=== PATIENT | male | born 1970 | race African-American/Black ===

== ENCOUNTER 2017-12-07 09:03 | Emergency (ER) | payer BC ==
[~2017-12-07] VITALS: Ht 182.8 cm; Wt 108.9 kg
[~2017-12-07 09:03] MED LIST: HYDROCODONE BIT1 T11 PO; NEXIUM40 MG PO; NKHM; VICODIN 5/500 505 MG PO
[2017-12-07] MEDS ORDERED: NEXIUM20 M1 PO (09:09)
[2017-12-07] MEDS ORDERED: ZYRTEC10 MG PO (10:23)
[2017-12-07] MEDS ORDERED: FLONASE ALLERG9.9 ML NS (10:23)
[2017-12-07] MEDS ORDERED: AUGMENTIN 875875 MG PO (10:23)
== END 2017-12-07 11:37 | disposition home or self-care (01) ==
LOC: ED 09:03
DX: J32.9 Chronic sinusitis, unspecified (principal); F10.10 Alcohol abuse, uncomplicated; Z79.899 Other long term (current) drug therapy

== ENCOUNTER → 2019-01-26 | Outpatient (CLI) | payer BC ==
[~2019-01-26] MED LIST changes: +AUGMENTIN 875875 MG PO; +FLONASE ALLERG9.9 ML NS; +NEXIUM20 M1 PO; +ZYRTEC10 MG PO
[2019-01-26 11:51] LABS: BASO # 0.1 10*3/uL (0.0-0.1); BASO % 0.7 % (0.0-1.0); EOS # 0.3 10*3/uL (0.0-0.4); EOS % 3.6 % (1.0-4.0); HEMATOCRIT 47.4 % (42.0-52.0); HEMOGLOBIN 16.1 g/dl (14.0-18.0); LYMPH # 2.7 10*3/uL (1.3-4.4); LYMPH % 39.1 % (27.0-41.0); MEAN CELL VOLUME 88.1 fl (80.0-94.0); MEAN CORPUSCULAR HGB 29.9 pg (27.0-31.0); MEAN PLATELET VOLUME 10.8 fl (9.6-12.3); MONO # 0.7 10*3/uL (0.1-1.0); MONO % 10.3 % (3.0-9.0); NEUT # 3.2 10*3/uL (2.3-7.9); NEUT % 45.9 % (47.0-73.0); PLATELET COUNT AUTOMATED 244 10*3/uL (130-400); RED BLOOD COUNT 5.38 10*6/uL (4.50-5.90); RED CELL DISTRI WIDTH 14.5 % (0-14.5)
[2019-01-26 12:27] LABS: ALBUMIN 3.7 gm/dl (3.1-4.5); ALKALINE PHOSPHATASE 98 U/L (45-117); BUN 16 mg/dl (7-24); CHLORIDE 109 mmol/L (98-107); CHOLESTEROL 166 mg/dL (<200); CREATININE 1.29 mg/dL (0.70-1.30); FREE T4 1.04 ng/dl (0.76-1.46); HDL CHOLESTEROL 35 mg/dl (40-60); LDL CHOLESTEROL 103 mg/dL (9-159); POTASSIUM 3.7 mmol/L (3.5-5.1); SGOT/AST 10 IU/L (3-35); SGPT/ALT 23 U/L (12-78); SODIUM 143 mmol/L (136-145); TOTAL PROTEIN 8.5 gm/dL (6.4-8.2); TRIGLYCERIDES 139 mg/dl (<150); VLDL CHOLESTEROL 28 mg/dL (6-40)
== END | disposition home or self-care (01) ==
LOC: LAB 11:13
PROVIDERS: Family Medicine
DX: I10 Essential (primary) hypertension (principal); E78.6 Lipoprotein deficiency

== ENCOUNTER 2020-06-19 13:22 | Emergency (ER) | payer BC ==
[~2020-06-19] VITALS: Ht 182.8 cm; Wt 117.9 kg
[2020-06-19] MEDS ORDERED: IBU800 MG PO (15:05)
== END 2020-06-19 15:12 | disposition home or self-care (01) ==
LOC: ED 13:22
DX: S20.212A Contusion of left front wall of thorax, initial encounter (principal); Z79.899 Other long term (current) drug therapy; W18.09XA Striking against other object with subsequent fall, initial encounter; Y93.89 Activity, other specified; Y92.89 Other specified places as the place of occurrence of the external cause; Y99.8 Other external cause status

== ENCOUNTER → 2023-03-05 | Outpatient (CLI) | payer BC ==
[~2023-03-05] MED LIST changes: +IBU800 MG PO
== END ==
LOC: RAD/SH 07:46
PROVIDERS: ATTEND Internal Medicine
DX: R13.10 Dysphagia, unspecified (principal)

== ENCOUNTER 2023-08-23 08:42 | Emergency (ER) | payer BC ==
[2023-08-23 10:02] LABS: BASO # 0.1 10*3/uL (0.0-0.1); BASO % 0.5 % (0.0-1.0); EOS # 0.2 10*3/uL (0.0-0.4); EOS % 1.9 % (1.0-4.0); HEMATOCRIT 40.3 % (42.0-52.0); LYMPH # 2.9 10*3/uL (1.3-4.4); LYMPH % 25.8 % (27.0-41.0); MEAN CELL VOLUME 83.8 fl (80.0-94.0); MEAN PLATELET VOLUME 9.8 fl (9.6-12.3); MONO # 0.8 10*3/uL (0.1-1.0); MONO % 7.1 % (3.0-9.0); NEUT # 7.3 10*3/uL (2.3-7.9); NEUT % 63.9 % (47.0-73.0); PLATELET COUNT AUTOMATED 253 10*3/uL (130-400); RED BLOOD COUNT 4.81 10*6/uL (4.50-5.90); RED CELL DISTRI WIDTH 16.9 % (0-14.5); WHITE BLOOD COUNT 11.4 10*3/uL (4.8-10.8)
[2023-08-23 10:34] LABS: ALKALINE PHOSPHATASE 75 U/L (46-116); BUN 15 mg/dl (9-23); CHLORIDE 105 mmol/L (98-107); LIPASE 49 U/L (12-53); POTASSIUM 4.2 mmol/L (3.4-5.1); SGPT/ALT 15 U/L (10-49); TOTAL PROTEIN 7.8 gm/dL (6.0-8.0)
[2023-08-23] MEDS ORDERED: VIBRAMYCIN100 MG PO (10:47)
== END 2023-08-23 11:00 | disposition left against medical advice (07) ==
LOC: ED 08:42
PROVIDERS: Internal Medicine
DX: M25.521 Pain in right elbow (principal); Z53.29 Procedure and treatment not carried out because of patient's decision for other reasons; Z79.2 Long term (current) use of antibiotics; Z79.899 Other long term (current) drug therapy

== ENCOUNTER → 2025-04-25 | Outpatient (CLI) | payer BC ==
[~2025-04-25] MED LIST changes: +VIBRAMYCIN100 MG PO
[2025-04-25 11:06] LABS: BASO # 0.1 10*3/uL (0.0-0.1); BASO % 0.9 % (0.0-1.0); EOS # 0.2 10*3/uL (0.0-0.4); EOS % 3.5 % (1.0-4.0); HEMATOCRIT 41.6 % (42.0-52.0); MEAN CELL VOLUME 81.3 fl (80.0-94.0); MEAN CORPUSCULAR HGB 25.8 pg (27.0-31.0); MEAN CORPUSCULAR HGB CONC 31.7 g/dl (33.0-37.0); MEAN PLATELET VOLUME 10.5 fl (9.6-12.3); MONO # 0.7 10*3/uL (0.1-1.0); MONO % 10.5 % (3.0-9.0); NEUT # 3.5 10*3/uL (2.3-7.9); NEUT % 52.9 % (47.0-73.0); PLATELET COUNT AUTOMATED 255 10*3/uL (130-400); RED BLOOD COUNT 5.12 10*6/uL (4.50-5.90); RED CELL DISTRI WIDTH 15.3 % (0-14.5); WHITE BLOOD COUNT 6.6 10*3/uL (4.8-10.8)
[2025-04-25 11:32] LABS: ALKALINE PHOSPHATASE 100 U/L (46-116); BUN 11 mg/dl (9-23); CHLORIDE 104 mmol/L (98-107); CHOLESTEROL 205 mg/dL (<200); FREE T4 1.14 ng/dl (0.89-1.76); LDL CHOLESTEROL 138 mg/dL (9-159); POTASSIUM 4.6 mmol/L (3.4-5.1); SGPT/ALT 16 U/L (5-49); TOTAL PROTEIN 7.9 gm/dL (6.0-8.0); TRIGLYCERIDES 116 mg/dl (<150)
[2025-04-25 11:56] LABS: VITAMIN D, 25-HYDROXY 23.6 ng/mL (30-100)
== END | disposition home or self-care (01) ==
LOC: LAB 09:41
PROVIDERS: Internal Medicine; ATTEND Family Medicine
DX: I10 Essential (primary) hypertension (principal); E55.9 Vitamin D deficiency, unspecified; Z12.5 Encounter for screening for malignant neoplasm of prostate